=== PATIENT | female | born 1985 | race Caucasian/White ===

== ENCOUNTER 2017-01-15 14:50 | Emergency (ER) | payer MEDICAID ==
[~2017-01-15] VITALS: Ht 170.2 cm; Wt 73.0 kg
[~2017-01-15 14:50] MED LIST: IOHEXOL-300 100 ML BOTTLE ONE; SODIUM CHLORIDE 0.9% 10ML VIAL ONE
[2017-01-15] MEDS ORDERED: ONDANSETRON HCL 4MG/2ML VIAL IV STA (15:38)
[2017-01-15] MEDS ORDERED: MORPHINE SULFATE 4 MG/ML CPJ (NOT FOR IM USE) IV STA (15:38)
[2017-01-15] MEDS ORDERED: SODIUM CHLORIDE 0.9% 1,000 ML IV ONE (15:38)
[2017-01-15 16:32] LABS: BASOPHILS % 0.3 % (0.0-2.0); EOSINOPHILS % 0.3 % (0.0-5.0); HEMATOCRIT. 38.4 % (36.0-48.0); HEMOGLOBIN. 12.8 g/dL (12.0-16.0); LYMPHOCYTES % 13.3 % (20.0-50.0); MEAN CORPUSCULAR HEMOGLOBIN 29.5 pg (28.0-32.0); MEAN CORPUSCULAR VOLUME 88.3 fL (81.0-99.0); MEAN PLATELET VOLUME 10.2 fl (7.4-10.4); MONOCYTES % 4.6 % (2.0-8.0); NEUTROPHILS % 81.5 % (40.0-76.0); PLATELET 236 x1000/uL (130-400); RED BLOOD CELL COUNT 4.34 mill/uL (4.2-5.4)
[2017-01-15 16:36] LABS: PROTHROMBIN TIME 10.7 sec
[2017-01-15 16:43] LABS: CARBON DIOXIDE 24 mEq/L (21-32); CHLORIDE 108 mEq/L (98-107)
[2017-01-15] MEDS ORDERED: KETOROLAC 30MG/ML VIAL IV ONE (17:00)
[2017-01-15 17:10] LABS: HCG SCREEN NEGATIVE
[2017-01-15 17:19] LABS: CLARITY URINE CLEAR (CLEAR); COLOR URINE YELLOW (YELLOW); GLUCOSE URINE NEGATIVE (NEGATIVE); KETONES URINE TRACE (NEGATIVE); LEUKOCYTE ESTERASE URINE TRACE (NEGATIVE); NITRITE URINE NEGATIVE (NEGATIVE); OCCULT BLOOD URINE NEGATIVE (NEGATIVE); PROTEIN URINE NEGATIVE (NEGATIVE); SPECIFIC GRAVITY URINE 1.019 (1.005-1.030); UROBILINOGEN URINE 0.2 E.U./dL (0.2-1.0)
[2017-01-15 17:31] LABS: *AMPHETAMINES SCREEN URINE NEGATIVE (NEGATIVE); *BARBITURATES SCREEN URINE NEGATIVE (NEGATIVE); *BENZODIAZEPINES SCREEN URINE NEGATIVE (NEGATIVE); *COCAINE SCREEN URINE NEGATIVE (NEGATIVE); CANNABINOID URINE SCREEN NEGATIVE (NEGATIVE); METHADONE URINE SCREEN NEGATIVE (NEGATIVE); PHENCYCLIDINE URINE SCREEN NEGATIVE (NEGATIVE)
[2017-01-15 17:35] LABS: OPIATES URINE SCREEN PRESUMTIVE POSITIVE (NEGATIVE)
[2017-01-15 19:46] VITALS: BP 125/65
[2017-01-15] MEDS ORDERED: AZITHROMYCIN 500 MG TABLET PO ONE (20:00)
[2017-01-15] MEDS ORDERED: CEFTRIAXONE SODIUM 1 G/VIAL IM ONE (20:00)
[2017-01-15] MEDS ORDERED: LIDOCAINE HCL 1% 20ML VIAL (Pyxis) INJ MC ONE (20:00)
== END 2017-01-15 20:39 | disposition home or self-care (01) ==
LOC: EDBD 15:10 → ER 15:10
DX: R10.31 Right lower quadrant pain (principal); D72.829 Elevated white blood cell count, unspecified; R03.0 Elevated blood-pressure reading, without diagnosis of hypertension
CPT/HCPCS: 36415; 74177; 80053; 80305; 81001; 83690; 84703; 85025; 85610; 87210; 96361; 96372; 96374; 96375; 99285; A4216; J0696; J1885; J2270; J2405; J3490; J7030; Q9967; Z7610; 87491; 87591